=== PATIENT | female | born 1950 | race Caucasian/White ===

== ENCOUNTER 2016-04-16 20:19 | Emergency (ER) | payer MEDICARE ==
[2016-04-16] MEDS ORDERED: IOPAMIDOL 370 (76%) IV.SOLN 150 ML IV ONE (20:20)
[2016-04-16] MEDS ORDERED: ASPIRIN CHEWTAB 81 MG TABLET ONE (20:36)
[2016-04-16 21:07] LABS: ABSOLUTE NEUTROPHIL COUNT 5.9 K/mm3 (1.8-7.7); BASO # 0.1 K/mm3 (0.0-0.2); BASO % 0.5 % (0.2-1.0); EOS # 0.2 (0.0-0.5); EOS % 2.2 % (0.9-2.9); HEMATOCRIT 44.9 % (37.0-47.0); HEMOGLOBIN 14.6 gm/l (12.0-16.0); IMM NEUT% 0.3 % (0-1); LYMPH # 2.4 (1.0-4.8); LYMPH % 25.7 % (15-45); MEAN CELL VOLUME 91.6 fl (81.0-99.0); MEAN CORPUSCULAR HEMOGLOBIN 29.8 pg (27.0-31.0); MEAN CORPUSCULAR HGB CONC 32.5 g/dl (33.0-37.0); MEAN PLATELET VOLUME 10.9 fl (7.4-10.4); MONO # 0.7 (0.0-0.8); MONO % 7.9 % (4-12); NEUT % 63.4 % (43-75); PLATELET COUNT 212 K/mm3 (130-400); RED CELL DISTRIBUTION WIDTH 12.5 % (11.5-14.5)
[2016-04-16 21:24] LABS: ALBUMIN 3.7 gm/dL (3.5-5.7); CALCIUM 9.3 mg/dL (8.6-10.3)
[2016-04-16 21:27] LABS: TROPONIN I < 0.01 ng/ml (0.0-0.06)
--- NOTE | 2016-04-16 22:32 | RAD ---
Name: CLAYTON HERNANDES Exam: Two-view chest Comparison: 11/22/2008 Clinical history: Chest pain Findings: 2 views the chest are submitted heart is nonenlarged. Midline sternotomy wires are present. Hilar structures are normal. There is diffuse aneurysmal dilation of the thoracic aorta. Lungs are clear. There is no pleural effusion or pneumothorax. Gallbladder surgically absent. Impression: Diffuse dilation of the thoracic aorta new from the prior exam. CT has been ordered.
--- NOTE | 2016-04-17 08:23 | CT ---
EXAMINATION: CT angiography of the thorax.CTA CHEST FOR DISSECTION INDICATION: Increasing size of the thoracic aorta on chest radiograph. Patient with chest pain. COMPARISON: Prior CT scan of the chest dated 12/22/2012. TECHNIQUE: Helical scan mode CT of the Thorax after uneventful intravenous contrast administration of 125 ml of Isovue-370. Imaging device: [employer] multidetector CT scan. Helically acquired stacked images were reviewed in the axial, sagittal and coronal planes. Additional 3-D postprocessing was performed and reconstructed images were acquired at the 3D [employer] workstation and reviewed as well. FINDINGS: The bolus is of good quality for diagnosis of aortic aneurysm. Since the prior examination patient's undergone postsurgical repair of the ascending aortic aneurysm. The ascending aorta now measures 4.0 x 3.9 cm in AP and transverse dimension. Near a surgical clip there is a small protrusion that exhibits contrast enhancement extending to the right anterior aspect measuring approximately 8 mm in size. 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 At the level of the main pulmonary artery bifurcation it measures 6.2 x 5.4 cm. At the level of the aortic arch. It measures approximately 4.2 cm in diameter. Near level of the mahesh the diaphragm the mural thrombus is no longer evident and the diameter is 3.3 x 3.6 cm in AP and transverse dimension. The pulmonary artery is unremarkable. No emboli are identified. The lung parenchyma: There is left basilar atelectasis closely approximating the ectatic aorta. There is diffuse groundglass opacity as well raising the question of mild pulmonary edema. Pleural effusion: There is a mild to moderate left pleural effusion.: Mediastinum: There is no axillary, mediastinal or hilar adenopathy. There is cardiomegaly. No pericardial effusion is identified. Osseus structures: The osseous structures are unremarkable. Sternotomy wires are noted. Soft tissues: within normal limits Limited evaluation of the abdomen on this arterial phase injection reveals: no gross abnormalities. IMPRESSION: 1. Interval development of [place] type B aortic dissection with thrombosed false lumen and considerable ectasia. There is no extension of the dissection below the diaphragm. 2. Interval repair of ascending aortic aneurysm. 3. Diffuse groundglass lung opacity. Findings may reflect a component of pulmonary edema. 4. Small left pleural effusion with left basilar atelectasis. Findings were communicated by [facility] to the emergency department at: 2327 hours 04/16/2016
== END 2016-04-17 01:14 | disposition short-term general hospital (02) ==
LOC: ED 20:19
DX: I77.810 Thoracic aortic ectasia (principal); R07.9 Chest pain, unspecified; I25.2 Old myocardial infarction; F17.210 Nicotine dependence, cigarettes, uncomplicated
CPT/HCPCS: 83690; 85025; 82553; 80053; 84484; 71020; 71275; 99285 ×2; 93005; A9270; Q9967